=== PATIENT | male | born 1990 | race Caucasian/White ===

== ENCOUNTER 2023-12-07 20:18 | Emergency (ER) | payer OTHER, SELFPAY ==
[2023-12-07 20:53] VITALS: BP 155/84; PULSE 95; RESP 16; TEMP 36.6; O2SAT 99; BMI 31.0
[2023-12-08 01:21] VITALS: BP 140/81; PULSE 88; RESP 17; TEMP 36.7; O2SAT 100
--- NOTE | 2023-12-08 01:24 | ED.DENTAL ---
HPI - Dental/Oral General Chief complaint: Dental/Oral Stated complaint: tooth infection Time Seen by Provider: 12/08/23 01:21 Source: patient Mode of arrival: ambulatory Limitations: no limitations History of Present Illness HPI Narrative: Patient comes in the emergency room complaining of dental pain on the left side uppers side. Patient states that he has poor dentition, has been having intermittent pain and swelling for about a week. Denies fever chills. Related Data Previous Rx's Medication Instructions Recorded ketorolac 10 mg tablet 10 mg PO TID PRN pain #10 tabs 12/08/23 penicillin V potassium 500 mg 500 mg PO TID 10 days #30 tabs 12/08/23 tablet Allergies Allergy/AdvReac Type Severity Reaction Status Date / Time No Known Allergies Allergy Verified 12/08/23 01:23 Review of Systems Review of Systems: Constitutional : No Weight loss, No Fever, No Chills, No Night Sweats, No Fatigue, No Malaise ENT/Mouth : Complaining of dental pain, No Hearing loss, No Ear Pain, No Nasal Congestion, No Sinus Pain, No Hoarseness, No sore throat, No Rhinorrhea, No Swallowing Difficulty Eyes: No Eye Pain, No Swelling, No Redness, No Foreign Body, No Discharge, No Vision Changes Cardiovascular : No Chest Pain, No SOB, No Dyspnea on Exertion, No Orthopnea, No Edema, No Palpitations Respiratory : No Cough, No Sputum, No Wheezing, No Smoke Exposure, No Dyspnea Gastrointestinal : No Nausea, No Vomiting, No Diarrhea, No Constipation, No abdominal Pain, No Hematochezia, No Melena Genitourinary : no irregular bleeding, No Dysuria, No Urinary Frequency, No Hematuria, No Urinary Incontinence, No Urgency, No Flank Pain, No Urinary Flow Changes, No Hesitancy Musculoskeletal : No joint pain, No Myalgias, No Joint Swelling Skin : No Skin Lesions, No rash Neuro : No Weakness, No Numbness, No Paresthesias, No Loss of Consciousness, No Dizziness, No Headache Psych : No Anxiety/Panic, No Depression, No SI/HI/AH/VH, No Social Issues, Heme/Lymph: No Bruising, No Bleeding,No Lymphadenopathy Endocrine : No Polyuria, No Polydipsia, No Temperature Intolerance Physical Exam Vital Signs: Vital Signs: Last Vital Signs Temp 97.9 F 12/07/23 20:53 Pulse 95 12/07/23 20:53 Resp 16 12/07/23 20:53 BP 155/84 H 12/07/23 20:53 Pulse Ox 99 12/07/23 20:53 O2 Del Method Room Air 12/07/23 20:53 BMI result Body Mass Index 31.0 Const: Other: Appearance: Alert. Oriented X3. No acute distress. Eyes: Pupils equal, round and reactive to light. ENT: Pharynx normal. Poor dentition, cracked tooth to nearly the gumline 2 molars upper maxillary side Neck: Normal inspection. Neck supple. No lymph nodes noted. No crepitus CVS: Normal heart rate and rhythm. Pulses normal. Normal S1 and S2 Respiratory: No respiratory distress. Breath sounds normal. No Wheezing. No rales Abdomen: Soft and nontender. No rigidity. No distention. Skin: Skin warm and dry. Normal skin color. Normal skin turgor. Extremities: No lower extremity edema. No Lacerations. No Rash Neuro: Oriented X 3. No motor deficit. No sensory deficit. Moving all extremities. No slurred speech. CN 2 through 12 grossly intact Psych: calm, cooperative, normal affect Medical Decision Making Medical Decision Making MDM Narrative: I discussed the physical exam with the patient, patient will need antibiotics. Patient given the 1st dose IM Toradol and Augmentin. Patient instructed to follow-up with his dentist Differential Diagnosis Differential Diagnoses: The differential diagnosis associated with the presentation includes (Cracked tooth, dental abscess, dental pain) Discharge Plan Discharge Clinical Impression: Toothache Patient Disposition: Home, Self-Care Instructions: Toothache (ED) Additional Instructions: Please follow-up with your primary care physician and your dentist tomorrow. If you have any worsening or new symptoms, please return to the emergency room or call 911 Prescriptions: New penicillin V potassium 500 mg tablet 500 mg PO TID 10 Days Qty: 30 0RF ketorolac 10 mg tablet 10 mg PO TID PRN (Reason: pain) Qty: 10 0RF Rx Instructions: Do not take this medication with ibuprofen/NSAIDs, only Tylenol if needed Stand Alone Forms: Work/School Release
[2023-12-08] MEDS: Ketorolac Tromethamine 60 MG/2 ML VIAL IM (01:33)
[2023-12-08] MEDS: Amoxicillin/Potassium Clav 500 MG TABLET PO (01:34)
--- OUTSIDE RECORDS SUMMARY | 2023-12-08 01:42 | XMS_ITS | Continuity of Care Document ---
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 Start after completing steroid treatment., # 120 Gm, 2 Refills, Acute 03/10/23 17:15:00 EDT, 12/10/22 17:15:00 EST, Cream, [id number], Partial fill upon patient request... Start Date: 12/10/22 Stop Date: 03/10/23 Status: Ordered Patient Care team information Care Team Personnel Name: Not on Staff, PCP Position: S Physician (General Medicine) Member Role: PCP Care Team Related Persons Name: LILIBETH EUBANKS
--- OUTSIDE RECORDS SUMMARY | 2023-12-08 01:42 | XMS_ITS | Continuity of Care Document ---
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 Name Role Phone Not on Staff, PCP Primary Care Physician Unavail able Encounter [facility] [place] Date(s): 03/25/23 - 04/24/[address] [facility] [address], [place] [address] Attending Physician: Steffany Araujo Admitting Physician: Steffany Araujo Referring Physician: Steffany Araujo Allergies, Adverse Reactions, Alerts No Known Medication Allergies Medications calcipotriene 0.005% topical cream 1 application, Topically, 2 times a day, do not use on face, # 240 Gm, 1 Refills, Maintenance, 03/25/23 16:20:00 EDT, Cream, [id number], Partial fill upon patient request if the prescription is for a schedule II opioid drug., 1 application Top... Start Date: 03/25/23 Status: Ordered triamcinolone 0.1% topical cream 1 application, Topically, 2 times a day, PRN Itch, apply a thin film to affected area. OK to use onface, # 454 Gm, 1 Refills, Maintenance, 03/25/23 16:22:00 EDT, Cream, [id number], Partial fill upon patient request if the prescription is for... Start Date: 03/25/23 Status: Ordered Problem List Condition Confirmation Course Effective Dates Status Health [facility] Informant Psoriasis Confirmed Active Patient Care team information Care Team Personnel Name: Not on Staff, PCP Position: [facility] Physician (General Medicine) Member Role: PCP Care Team Related Persons Name: LILIBETH EUBANKS
== END 2023-12-08 01:47 | disposition home or self-care (01) ==
LOC: HO.ED 12-08 01:41
PROVIDERS: Emergency Provider Emergency Medicine
DX: K08.89 Other specified disorders of teeth and supporting structures (principal)
CPT/HCPCS: 96372; 99283; 99284; J1885